=== PATIENT | female | born 1940 | race Caucasian/White ===

== ENCOUNTER 2022-06-03 05:56 | Day surgery (SDC) | payer MEDICARE ==
[~2022-06-03] VITALS: Ht 170.2 cm; Wt 65.8 kg
[~2022-06-03 05:56] MED LIST: HYDCHL25 PO; Lovastatin20 MG PO
--- NOTE | 2022-06-03 06:45 | NUR ---
Deloris Paws warming gown applied. Surgical site prepped with 2% Chlorhexidine cloth wipe. History, Chart, Medications and Allergies reviewed before start of procedure.Lungs clear T/O to Auscultation. Patient confirms NPO status and agrees with scheduled surgery. Pre-Op teaching done. Pt verbalizes understanding. Patient States Post-Procedure ride home has been arranged. Patient reports completing Chlorhexadine shower X2 prior to admission to hospital.
--- NOTE | 2022-06-03 09:07 | NUR ---
Dressing to procedure site clean, dry, intact with no visible drainage, swelling, erythema or bruising noted.
--- NOTE | 2022-06-03 09:39 | NUR ---
Discharge instructions reviewed with patient. Patient verbalizes understanding. Copy given to patient to take home. Dressing to procedure site clean, dry, intact with no visible drainage, swelling, erythema or bruising noted. Discharged via wheelchair to private car for ride home.
== END 2022-06-03 09:42 | disposition home or self-care (01) ==
LOC: ORSCMMR 05:56 → ORD 07:30 → ORSCMMR 07:30
PROVIDERS: Orthopaedic Surgery
PROC: 0RPJ04Z Removal of Internal Fixation Device from Right Shoulder Joint, Open Approach (ICD-10-PCS; principal; 2022-06-03 07:30)
DX: T84.9XXA Unspecified complication of internal orthopedic prosthetic device, implant and graft, initial encounter (principal); Z96.9 Presence of functional implant, unspecified; I10 Essential (primary) hypertension; E78.5 Hyperlipidemia, unspecified; Z79.899 Other long term (current) drug therapy
CPT/HCPCS: C1713; J0690; J1100; J1885; J2405; J2704; J3010; J7120

== ENCOUNTER → 2022-08-18 | Outpatient (CLI) | payer MEDICARE ==
[2022-08-18 11:11] LABS: BASOPHILS ABSOLUTE AUTO 0.06 K/mm3 (0.00-0.23); BASOPHILS PERCENT AUTO 1 % (0-2); EOSINOPHILS ABSOLUTE AUTO 0.13 K/mm3 (0.00-0.68); EOSINOPHILS PERCENT AUTO 2 % (0-6); Hematocrit 40.1 % (33.0-51.0); Hemoglobin 13.2 g/dL (11.5-16.0); IMMATURE GRAN ABSOLUTE AUTO 0.02 K/mm3 (0.00-0.10); IMMATURE GRAN PERCENT AUTO 0 % (0-1); LYMPHOCYTES ABSOLUTE AUTO 1.75 K/mm3 (0.84-5.20); LYMPHOCYTES PERCENT AUTO 25 % (21-46); MONOCYTES ABSOLUTE AUTO 0.67 K/mm3 (0.16-1.47); MONOCYTES PERCENT AUTO 9 % (4-13); Mean Corpuscular HGB 29.1 pg (26.0-34.0); Mean Corpuscular HGB Conc 32.9 g/dL (31.5-36.5); Mean Corpuscular Volume 89 fL (80-100); Mean Platelet Volume 12.1 fL (9.1-12.4); NEUTROPHILS ABSOLUTE AUTO 4.46 K/mm3 (1.96-9.15); NEUTROPHILS PERCENT AUTO 63 % (41-73); Platelet Count 231 K/mm3 (150-400); RDW Coefficient Variation 14.5 % (11.7-14.2); RDW Standard Deviation 46.4 fL (35.1-46.3); Red Blood Cell Count 4.53 M/mm3 (3.80-5.20); White Blood Cell Count 7.09 K/mm3 (4.00-11.30)
[2022-08-18 11:43] LABS: Alanine Aminotransfer (ALT/SGP 21 U/L (12-78); Albumin, Blood 3.7 g/dL (3.4-5.0); Albumin/Globulin Ratio 1.1 (0.8-1.8); Alk Phos 96 U/L (40-126); Anion Gap 10 mmol/L (6-16); Aspartate Aminotrans (AST/SGOT 17 U/L (12-37); Bilirubin, Total 0.4 mg/dL (0.1-1.0); Blood Urea Nitrogen 14 mg/dL (8-24); Bun/Creatinine Ratio 16.3 (12.0-20.0); CHOL/HDL RATIO 3.1; CO2, Blood 28 mmol/L (21-32); Calcium, Blood 9.1 mg/dL (8.5-10.1); Chloride, Blood 105 mmol/L (98-108); Cholesterol 131 mg/dL (50-200); Creatinine, Blood 0.86 mg/dL (0.40-1.00); Globulin, Blood 3.3 g/dL (2.2-4.0); Glomerular Filtration Rate 67 (60-); Glucose, Blood 91 mg/dL (70-99); HDL Cholesterol 42 mg/dL (>39); LDL/HDL RATIO 1.3; Low Density Lipoprotein Chol 54 mg/dL (<110); Potassium, Blood 3.8 mmol/L (3.5-5.5); Sodium, Blood 143 mmol/L (136-145); Triglycerides 176 mg/dL (30-160); Very Low Density Lipoprot Chol 35 mg/dL (6-32)
== END | disposition home or self-care (01) ==
LOC: LAB SHORT 11:04 → LAB 11:04
PROVIDERS: Physician Assistant
DX: E78.5 Hyperlipidemia, unspecified (principal); I10 Essential (primary) hypertension
CPT/HCPCS: 80053; 80061; 85025